=== PATIENT | female | born 1945 | race Caucasian/White ===

== ENCOUNTER 2021-10-09 09:21 | Emergency (ER) | payer MEDICARE ==
[~2021-10-09] VITALS: Ht 152.4 cm; Wt 66.6 kg
[2021-10-09 10:12] LABS: INFLUENZA A PATIENT NEGATIVE (NEGATIVE); INFLUENZA B PATIENT NEGATIVE (NEGATIVE)
--- NOTE | 2021-10-09 10:14 | PHYS DOC ---
General Adult EDM: Chief Complaint: COUGH HPI: HPI: 75-year-old female past medical history of COPD on 2 L nasal cannula, CKD, PAD, hypothyroidism, hypertension and hyperlipidemia, presents to the ED sent in by urgent care with her daughter, (patient consents to his/her/their knowledge and involvement in pts' medical care), concern for productive cough with yellow sputum, chest pain only with coughing, fatigue and decreased appetite that started yesterday after visiting with her son. Reports history of pneumonia and states this feels similar, "I think I have bronchitis." Some relief with albuterol nebulizer treatment this morning. Daughter reports pt was "breathing hard" yesterday-symptoms improved with albuterol nebulizer treatment. PCP is Dr. Parker Canas. Has a emergency medicine in [place] where she lives (is here visiting family). Does not need medication refills. Has no active chest pain or shortness of breath. Reports her worst complaint is fatigue. Review of Systems: Review of Systems: Constitutional: Denies fever or chills Eyes: Denies change in visual acuity HENT: Denies nasal congestion or sore throat Respiratory: Denies hemoptysis or increased work of breathing Cardiovascular: Denies palpitations or edema GI: Denies nausea and vomiting : Denies dysuria or hematuria Musculoskeletal: Denies back pain or joint pain Integument: Denies rash or diaphoresis Neurologic: Denies headache, focal weakness or sensory changes Psychiatric: Denies depression or anxiety Allergies: Allergies: Allergies Coded Allergies Type Severity Reaction Last Updated Verified atorvastatin Allergy Unknown joint pain 10/09/21 Yes codeine Allergy Unknown N/V 10/09/21 Yes doxycycline Allergy Unknown diarrhea 10/09/21 Yes meperidine Allergy Unknown rash 10/09/21 Yes propoxyphene Allergy Unknown rash, nausea 10/09/21 Yes tetracycline Allergy Unknown N/V 10/09/21 Yes Physical Exam: PE: Constitutional: Well developed, well nourished, no acute distress, non-toxic appearance. HENT: Normocephalic, atraumatic, Eyes: EOMI, conjunctiva normal, no discharge. Neck: Normal range of motion, supple, no jvd Cardiovascular: S1/2 present, regular rhythm Lungs & Thorax: Speaking in full sentences, bilateral equal chest rise, no tachypnea or increased work of breathing, on 2 L nasal cannula Skin: Warm, dry, no erythema, no rash. [] Extremities: No tenderness, no cyanosis, Neurologic: Alert and oriented X 3, normal motor function, normal sensory functi on, no focal deficits noted. [] Psychologic: Affect normal, judgement normal, mood normal. [] Current Patient Data: Vital Signs: Vital Signs Date Time Temp Pulse Resp B/P (MAP) Pulse Ox O2 Delivery O2 Flow Rate FiO2 10/09/21 09:21 98.8 76 18 145/62 (89) 98 Nasal Cannula 2.0 EKG: EKG: [] Radiology/Procedures: Radiology/Procedures: IMAGING REPORT Signed PATIENT: LESA THAKKAR ACCOUNT: [id number] : 1945 LOCATION: ER AGE: 75 SEX: F EXAM STATUS: REG ER ORD. PHYSICIAN: JESSICA WOODS DO REASON: cough, fatigue PROCEDURE: CHEST PA & LATERAL XR CHEST 2V CLINICAL INDICATIONS: Reason: cough, fatigue COMPARISON: None available. Findings: Hyperinflation is seen consistent with COPD. There is a diffuse increase in the interstitium bilaterally. This could represent interstitial lung infiltrates or bronchitis which may be acute or chronic in nature. No lung consolidation or pleural effusion or pneumothorax or lung mass is evident other kelly. The heart size is at the upper limits of normal. The pulmonary vasculature, mediastinum and both lucas are unremarkable. The osseous structures appear intact. IMPRESSION: COPD. Mild bilateral diffuse interstitial lung infiltrates or bronchitis which may be acute or chronic in nature. Electronically signed by: Christina Interiano MD (10/09/2021 10:20 AM) [id number] DICTATED AND SIGNED BY: CHRISTINA INTERIANO MD DATE: 10/09/21 1015 CC: NON,STAFF; JESSICA WOODS DO ~MTH0 0 Heart Score: C/O Chest Pain: No Risk Factors: Risk Factors: DM, Current or recent (<one month) smoker, HTN, HLP, family history of CAD, obesity. Risk Scores: Score 0 - 3: 2.5% MACE over next 6 weeks - Discharge Home Score 4 - 6: 20.3% MACE over next 6 weeks - Admit for Clinical Observation Score 7 - 10: 72.7% MACE over next 6 weeks - Early Invasive Strategies Course & Med Decision Making: Course & Med Decision Making Pertinent Labs and Imaging studies reviewed. (See chart for details) Concern for URI in a copd pt, tx'ed with dexamethasone in the emergency department. Chest x-ray concerning for acute bronchitis. Patient not requiring any additional oxygen, has no increased work of breathing, is speaking in full sentences and protecting her airway. Patient is afebrile. Flu and Covid rapid tests negative. Does not need any inhaler or nebulizer refills. We will treat with prednisone and azithromycin. Will discharge home with strict ED return precautions were given for increased work of breathing, fever, shortness of breath, chest pain or abnormal behavior. Encouraged urgent outpatient follow-up with PMD for reevaluation. Life-threatening processes were considered but are low suspicion at this time, given history, physical exam and ED workup. Pt was educated on all prescription medications and adverse effects. All patient's questions were answered and pt was stable at time of discharge. Life/limb-threatening differential includes but is not limited to, foreign body, infection/sepsis, congestive heart failure or pulmonary edema, lung cancer intrathoracic mass, bronchoconstriction, asthma/COPD/lung disease exacerbation, pneumothorax or hemothorax, pulmonary emboli, autoimmune/neurologic disease or toxidrome. I have spoken with the patient and/or caregivers. I explained the patient's condition, diagnoses and treatment plan based on the information available to me at this time. I have answered the patient and/or caregiver's questions and addressed any concerns. The patient and/or caregivers have a good understanding of patient's diagnosis, condition and treatment plan as can be expected at this point. Vital signs have been stable. Patient's condition is stable and appropriate for discharge from the emergency department. Patient will pursue further outpatient evaluation with primary care physician or other designated or consulting physician as outlined in the discharge instructions. The patient and/or caregivers are agreeable to this plan of care and follow-up instructions have been explained in detail. The patient and/or caregivers have received these instructions in written form and have expressed an understanding of the discharge instructions. The patient and/or caregivers are aware that any significant change of condition or worsening of symptoms should prompt immediate return to this or the closest emergency department or call to 911. Russell Disclaimer: Russell Disclaimer: This electronic medical record was generated, in whole or in part, using a voice recognition dictation system. Departure Departure: Impression: Primary Impression: Acute bronchitis Additional Impression: COPD (chronic obstructive pulmonary disease) Disposition: HOME / SELF CARE / HOMELESS Condition: STABLE Referrals: NON,STAFF (PCP) Follow up with your pcp in 1-2 days or [facility] Stefano Vivas [phone] OR [facility]-Dr. Friedman [phone] Patient Instructions: Bronchitis Additional Instructions: Return to emergency department if you should develop any increased work of breathing, fever, shortness of breath, chest pain or abnormal behavior. EMERGENCY DEPARTMENT GENERAL DISCHARGE INSTRUCTIONS Thank you for coming to [facility] (ED) today and trusting us with you care. We trust that you had a positivie experience in our Emergency Department. If you wish to speak to the department management, you may call the director at [phone]. YOUR FOLLOW UP INSTRUCTIONS ARE FOLLOWS: 1. Do you have a private Doctor? If you do not have a private doctor, please ask for a resource list of physicians or clinics that may be able to assist you with follow up care. 2. The Emergency Physician has interpreted your x-rays. The X-Ray specialist will also review them. If there is a change in the findings, you will be notified in 48 hours when at all possible. 3. A lab test or culture has been done, your results will be reviewed and you will be notified if you need a change in treatment. ADDITIONAL INSTRUCTIONS AND INFORMATION: 1. Your care today has been supervised by a physician who is specially trained in emergency care. Many problems require more than one evaluation for a complete diagnosis and treatment. We recommend that you schedule your follow up appointment as recommended to ensure complete treatment of you illness or injury. If you are unable to obtain follow up care and continue to have a problem, or if your condition worsens, we recommend that you return to the ED. 2. We are not able to safely determine your condition over the phone nor are we able to give sound medical advice over the phone. For these safety reasons, if you call for medical advice we will ask you to come to the ED for further evaluation. 3. If you have any questions regarding these discharge instructions please call the ED at [phone]. SAFETY INFORMATION: In the interest of safety, wellness, and injury prevention; we encourage you to wear your sealbelt, if you smoke; quite smoking, and we encourage family to use a protective helmet for bicycling and other sporting events that present an increased risk for head injury. IF YOUR SYMPTOMS WORSEN OR NEW SYMPTOMS DEVELOP, OR YOU HAVE CONCERNS ABOUT YOUR CONDITION; OR IF YOUR CONDITION WORSENS WHILE YOU ARE WAITING FOR YOUR FOLLOW UP APPOINTMENT; EITHER CONTACT YOUR PRIMARY CARE DOCTOR, THE PHYSICIAN WHOSE NAME AND NUMBER YOU WERE GIVEN, OR RETURN TO THE ED IMMEDIATELY. Scripts Azithromycin (AZITHROMYCIN TABLET) 250 Mg Tablet 1 PKG PO UD for bronchitis for 5 Days, #6 TAB 0 Refills 2 the first day followed by 1 for days 2-5 Prov: JESSICA WOODS DO 10/09/21 Prednisone (PREDNISONE) 50 Mg Tablet 50 MG PO DAILY for copd for 4 Days, #4 TAB Prov: JESSICA WOODS DO 10/09/21 JESSICA WOODS DO Oct 09, 2021 10:14
[2021-10-09] MEDS ORDERED: DEXAMETHASONE 4 MG TABLET PO ONE (10:15)
--- NOTE | 2021-10-09 10:22 | RAD ---
XR CHEST 2V CLINICAL INDICATIONS: Reason: cough, fatigue COMPARISON: None available. Findings: Hyperinflation is seen consistent with COPD. There is a diffuse increase in the interstitiu m bilaterally. This could represent interstitial lung infiltrates or bronchitis which may be acute or chronic in nature. No lung consolidation or pleural effusion or pneumothorax or lung mass is evident other kelly. The heart size is at the upper limits of normal. The pulmonary vasculature, mediastinum and both lucas are unremarkable. The osseous structures appear intact. IMPRESSION: COPD. Mild bilateral diffuse interstitial lung infiltrates or bronchitis which may be acu te or chronic in nature. Electronically signed by: Agustín Interiano MD (10/09/2021 10:20 AM) [id number]
[2021-10-09 10:27] VITALS: BP 135/66
[2021-10-09] MEDS ORDERED: AZIT250T6 PO (11:03)
[2021-10-09] MEDS ORDERED: PRED50TA PO (11:03)
== END 2021-10-09 11:12 | disposition home or self-care (01) ==
LOC: ER 09:21
DX: J20.9 Acute bronchitis, unspecified (principal); J44.0 Chronic obstructive pulmonary disease with (acute) lower respiratory infection; I12.9 Hypertensive chronic kidney disease with stage 1 through stage 4 chronic kidney disease, or unspecified chronic kidney disease; N18.9 Chronic kidney disease, unspecified; E03.9 Hypothyroidism, unspecified; E78.5 Hyperlipidemia, unspecified; Z20.822 Contact with and (suspected) exposure to COVID-19; Z88.5 Allergy status to narcotic agent; Z88.1 Allergy status to other antibiotic agents; Z88.8 Allergy status to other drugs, medicaments and biological substances
CPT/HCPCS: 71046; 87428; 99284; J8540